=== PATIENT | male | born 1990 | race Native Hawaiian/Other Pacific Islander ===

== ENCOUNTER 2016-11-09 11:30 | Inpatient (IN) | payer OTHER ==
[2016-11-09] VITALS (19 sets, daily range): BP systolic 132–171; BP diastolic 66–118; TEMP 97.6–98.5; Ht 172.7 cm; Wt 83.5 kg
[~2016-11-09] VITALS: Ht 172.7 cm; Wt 83.5 kg
[2016-11-09 12:53] LABS: POTASSIUM 2.8 mmol/L (3.6-5.2)
[2016-11-09 13:06] LABS: SODIUM 117 mmol/L (136-145)
[2016-11-09 14:22] LABS: PLATELET COUNT 140 K/uL (142-355)
[2016-11-10] VITALS (23 sets, daily range): BP systolic 136–178; BP diastolic 80–118; TEMP 97.7–98.3
[2016-11-10 06:56] LABS: PLATELET COUNT 88 K/uL (142-355)
[2016-11-10 07:13] LABS: POTASSIUM 2.9 mmol/L (3.6-5.2); SODIUM 125 mmol/L (136-145)
[2016-11-11] VITALS (13 sets, daily range): BP systolic 112–155; BP diastolic 83–114; TEMP 98–98.4
[2016-11-11 06:03] LABS: POTASSIUM 3.3 mmol/L (3.6-5.2); SODIUM 130 mmol/L (136-145)
[2016-11-11 06:35] LABS: PLATELET COUNT 87 K/uL (142-355)
[2016-11-12] VITALS (22 sets, daily range): BP systolic 103–154; BP diastolic 72–113; TEMP 97.6–99.1
[2016-11-12 06:53] LABS: PLATELET COUNT 115 K/uL (142-355)
[2016-11-12 07:03] LABS: POTASSIUM 3.1 mmol/L (3.6-5.2); SODIUM 131 mmol/L (136-145)
[2016-11-13] VITALS (13 sets, daily range): BP systolic 113–143; BP diastolic 80–101; TEMP 97.6–98.7
[2016-11-13 06:24] LABS: PLATELET COUNT 152 K/uL (142-355)
[2016-11-13 06:34] LABS: POTASSIUM 4.1 mmol/L (3.6-5.2); SODIUM 133 mmol/L (136-145)
[2016-11-14 00:20] VITALS: BP 126/91; TEMP 98.5
[2016-11-14 04:00] VITALS: BP 122/84; TEMP 98.2
[2016-11-14 04:55] LABS: PLATELET COUNT 174 K/uL (142-355)
[2016-11-14 05:23] LABS: SODIUM 136 mmol/L (136-145)
[2016-11-14 08:00] VITALS: BP 125/86; TEMP 97.6
[2016-11-14 12:00] VITALS: BP 140/90; TEMP 98.1
[2016-11-14 16:24] VITALS: BP 126/92; TEMP 98.1
[2016-11-14 20:15] VITALS: BP 128/95; TEMP 98.1
[2016-11-15 00:26] VITALS: BP 132/92; TEMP 98.3
[2016-11-15 04:00] VITALS: BP 100/74; TEMP 97.9
[2016-11-15 07:26] VITALS: BP 148/92; TEMP 98.2
== END 2016-11-15 11:26 | disposition home or self-care (01) | DRG 433 ==
LOC: ICU 11:30 → MED/SURG 11-13 15:15
PROVIDERS: ADMIT Family Medicine
DX: K70.40 Alcoholic hepatic failure without coma (principal); F10.29 Alcohol dependence with unspecified alcohol-induced disorder; E72.29 Other disorders of urea cycle metabolism; E87.1 Hypo-osmolality and hyponatremia
CPT/HCPCS: 36415; 80053; 80307; 80320; 81000; 82140; 83605; 83735; 84100; 85007; 85027; 87493; G0479; J2060; J3411; J3475; J3480; J3490

== ENCOUNTER 2016-12-24 16:15 | Emergency (ER) | payer OTHER ==
[~2016-12-24] VITALS: Ht 175.3 cm; Wt 84.4 kg
[2016-12-24 20:01] VITALS: BP 151/107; TEMP 98.5
== END 2016-12-24 21:17 | disposition home or self-care (01) ==
LOC: ED 16:15
DX: F10.10 Alcohol abuse, uncomplicated (principal)
CPT/HCPCS: 99281

== ENCOUNTER 2017-04-27 11:20 | Observation (INO) | payer OTHER ==
[~2017-04-27] VITALS: Ht 175.3 cm; Wt 89.6 kg
[2017-04-27 12:45] LABS: PLATELET COUNT 199 K/uL (142-355)
[2017-04-27 13:01] LABS: POTASSIUM 2.7 mmol/L (3.6-5.2); SODIUM 133 mmol/L (136-145)
[2017-04-27 17:15] VITALS: BP 168/100; TEMP 98.7; Ht 175.3 cm; Wt 89.6 kg
[2017-04-27 20:00] VITALS: BP 132/92; TEMP 99.1
[2017-04-28] VITALS: BP 135/84; TEMP 98.8
[2017-04-28 04:00] VITALS: BP 130/92; TEMP 98.3
[2017-04-28 08:00] VITALS: BP 122/84; TEMP 98.6
[2017-04-28 10:29] LABS: PLATELET COUNT 124 K/uL (142-355)
[2017-04-28 10:42] LABS: POTASSIUM 3.7 mmol/L (3.6-5.2); SODIUM 133 mmol/L (136-145)
[2017-04-28 12:00] VITALS: BP 126/88; TEMP 97.4
[2017-04-28 16:00] VITALS: BP 133/74; TEMP 98.6
== END 2017-04-28 17:56 | disposition home or self-care (01) ==
LOC: MED/SURG 11:20
PROVIDERS: ADMIT Family Medicine
DX: E86.0 Dehydration (principal); F10.29 Alcohol dependence with unspecified alcohol-induced disorder
CPT/HCPCS: 36415; 80053; 81000; 82140; 82150; 83690; 83735; 84100; 84134; 85027; 93005; 94664; 96360; 96361; 96375; 99220; G0378; G0379; J2060; J2405; J3360; J3411; J3475; J3490

== ENCOUNTER 2017-06-18 18:19 | Emergency (ER) | payer OTHER ==
[~2017-06-18] VITALS: Ht 175.3 cm; Wt 92.5 kg
[2017-06-18 18:36] VITALS: TEMP 98.7
[2017-06-18 19:20] LABS: PLATELET COUNT 294 K/uL (142-355)
[2017-06-18 19:28] LABS: POTASSIUM 3.3 mmol/L (3.6-5.2); SODIUM 137 mmol/L (136-145)
[2017-06-18 20:03] VITALS: BP 139/93
== END 2017-06-18 20:15 | disposition home or self-care (01) ==
LOC: ED 18:19
DX: F10.129 Alcohol abuse with intoxication, unspecified (principal); R00.0 Tachycardia, unspecified
CPT/HCPCS: 80053; 80307; 80320; 85027; 93005; 96374; 99284; G0479; J2060

== ENCOUNTER 2017-12-21 09:06 | Inpatient (IN) | payer OTHER ==
[~2017-12-21] VITALS: Ht 175.3 cm; Wt 92.2 kg
[2017-12-21] VITALS (17 sets, daily range): BP systolic 133–181; BP diastolic 74–102; TEMP 97.9–98.6; Ht 175.3 cm; Wt 92.2 kg
[2017-12-21 09:35] LABS: PLATELET COUNT 130 K/uL (142-355)
[2017-12-21 10:04] LABS: POTASSIUM 1.9 mmol/L (3.6-5.2)
--- NOTE | 2017-12-21 13:45 | NUR ---
REPORT RECEIVED FROM MANOJ SALEEM IN ER.
--- NOTE | 2017-12-21 14:20 | NUR ---
PT ADMITTED FROM ER TO ICU. ALERT AND ORIENTED X2. PT LETHARGIC BUT ABLE TO FOLLOW SIMPLE COMMANDS. RR EQUAL NONLABORED AT 18. TEMP 98.2. BP 143/94. PULSE 113. TELEMETRY APPLIED WITH SINUS TACH NOTED. SKIN WARM AND DRY. PT NAUSEATED AND HAS VOMITTED INTERMITTED TIMES. LUNGS CLEAR ON AUSCULATION. BOWEL SOUNDS HYPOACTIVE. ABDOMEN DISTENDED AND FIRM. NO EDEMA NOTED. SR UP X2. BED IN LOWEST POSITION. CALL LIGHT IN REACH. WILL CONTINUE TO MONITOR.
--- NOTE | 2017-12-21 15:00 | NUR ---
SPOKE WITH PT REGARDING PASSWORD AND HIS PARENTS, PT AGREED THAT PARENTS COULD HAVE PASSWORD. EXPLAINED VISITING TIMES TO PARENTS (THAT ONLY ONE PARENT FOR 15 MINS COULD VISIT DAILY)
--- NOTE | 2017-12-21 17:23 | NUR ---
PT NAUSEA AND VOMITTING. ONDANSTERON 4MG IV GIVEN FOR NAUSEA AT THIS TIME. PT INSTRUCTED ON USING URINAL. NAD NOTED. WILL CONTINUE TO MONITOR.
--- NOTE | 2017-12-21 17:41 | NUR ---
PT ASSISTED TO BR WITH TWO PERSON ASSIST.
--- NOTE | 2017-12-21 18:07 | NUR ---
IV ATIVAN 1MG GIVEN PER PROTOCOL. PT AGGITATED AND CONTINUES TO GET OUT OF THE BED TO GO TO THE BR. PT TREMORS NOTED. GAIT UNSTEADY AND REQUIRES ASSISTANCE. WILL CONTINUE TO MONITOR.
--- NOTE | 2017-12-21 18:13 | NUR ---
NAUSEA AND VOMITTING NOTED. PT ASSESSED WITH HOB ELEVATED. WILL CONTINUE TO MONITOR.
--- NOTE | 2017-12-21 18:46 | NUR ---
PT ASSISTED BACK TO BED FROM BR. NAD NOTED. WILL CONTINUE TO MONITOR.
--- NOTE | 2017-12-21 18:54 | NUR ---
PT RESTING IN BED ON RIGHT SIDE WITH HOB ELEVATED. SR UP X2. CALL LIGHT IN REACH. PULSE 126 BP 140/94. O2 SAT 100% ON RA. NO VOMITTING NOTED AT THIS TIME. POTASSIUM INFUSING AT 125 ML/HR. IV APPEARS NORMAL. NO HEAT OR SWELLING NOTED AT SITE. BED IN LOWEST POSTITION.
--- NOTE | 2017-12-21 19:14 | NUR ---
ATIVAN 1MG IV GIVEN PER PROTOCOL. NAD NOTED. WILL CONTINUE TO MONITOR.
[2017-12-22] VITALS (22 sets, daily range): BP systolic 108–171; BP diastolic 41–109; TEMP 98.5–99.6
--- NOTE | 2017-12-22 02:59 | NUR ---
12-21-171999 PT ASSESSMENT COMPLETE. PT ON CIWA PROTOCOL, SEE SCORE SHEET FOR SCORE. ATIVAN 1 MG IV (LAC) GIVEN SLOW IVP DUE TO CIWA SCORE. WILL CONT. TO MONITOR PT. SH
--- NOTE | 2017-12-22 03:03 | NUR ---
[id number] PT GIVEN ATIVAN 1 MG IV SLOW PUSH, SEE CIWA SCORE. WILL CONT. TO MONITOR PT FOR FURTHER NEEDS/ PROBLEMS. SH
--- NOTE | 2017-12-22 03:08 | NUR ---
3-29-1947 [facility] PROTOCOL FOR ALCOHOL WITHDRAWAL ASSESSMENT SCORING GUIDE, IN USE FOR THIS PT. ATIVAN 1 MG IV WAS GIVEN AT 191 THE LAST TIME. 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 AT THIS TIME HE IS IN BED NAPPING WITHOUT ANY NOTED PROBLEMS. SH
--- NOTE | 2017-12-22 03:23 | NUR ---
2248 - CIWA SCORE OF 8. PT IS NAPPING AT THIS TIME WITH NO DISTRESS NOTED. NO ATIVAN GIVEN. SH.
[2017-12-22 06:24] LABS: POTASSIUM 2.7 mmol/L (3.6-5.2)
--- NOTE | 2017-12-22 07:11 | NUR ---
12/22/17 0048 CIWA SCALE OBTAINED. PT EXISTING IV HAS STOPPED WORKING , CANNULA IS SLIPPING OUT OF LAC. THIS IV DC'D AND NEW # 22 JELCO PLACED INTO PTS R HAND, X 1 ATTEMPT ,SUCCESSFUL, PT TOLERATED WELL. NO ATIVAN NEEDED FOR PT AT THIS TIME. WILL MONITOR. SH
--- NOTE | 2017-12-22 07:18 | NUR ---
0205 ATIVAN 1 MG IV SP GIVEN FOR CIWA SCORE AND PT DISPOSITION. WILL CONT. TO MONITOR. SH
--- NOTE | 2017-12-22 07:20 | NUR ---
0305 NO ATIVAN DOSE NEEDED. PT SLEEPING , CIWA SCALE 7. SH 0445 ATIVAN 1 MG IV SP GIVEN FOR CIWA SCORE OF 13. SH 0548 PT SLEEPING WITHOUT ANY DISTRESS NOTED. CIWA SCORE IS 5. NO ATIVAN. SH 0648 PT CONT. SLEEPING WITHOUT ANY PROBLEMS. NO ATIVAN GIVEN. SH
--- NOTE | 2017-12-22 08:00 | NUR ---
PATIENT ADMITTED IN ICU 20-13. PATIENT DISPLAYS MODERATE ALCOHOL WITHDRAWL SYMTOMS, TREMORS AND ANXIETY NOTED WITH A MODERATE AMOUNT OF DIAPHERESIS. PATIENT EVALUATED ON CIWA SCALE, WILL CONTINUE TO MONITOR PATIENT FOR ANY CHANGES.
--- NOTE | 2017-12-22 09:00 | NUR ---
LO DA SILVA RETORT FIREMAN AND PATIENTS BED SIDE
--- NOTE | 2017-12-22 10:30 | NUR ---
PATIENT SLEEPING ALLL MORNING. PATIENT WAKES TO USE URINAL
--- NOTE | 2017-12-22 12:00 | NUR ---
PATIENT RESTING WITH EYES CLOSED, SNORING SOUNDS HEARD.
--- NOTE | 2017-12-22 14:00 | NUR ---
PATIENT RESTING, SNORING NOTED, EYES CLOSED. NO DISTRESS NOTED.
--- NOTE | 2017-12-22 15:00 | NUR ---
PATIENT RESTING WITH EYES CLOSE, SNORING SOUND HEARD.
[2017-12-22 15:39] LABS: PLATELET COUNT 81 K/uL (142-355)
--- NOTE | 2017-12-22 22:50 | NUR ---
PT RESTING IN BED WITH EYES CLOSED ON R SIDE, NO S/S OF PAIN OR DISTRESS NOTED, IV INTACT WITH FLUID ONGOING, RESP RATE NONLABORED, WILL MONITOR CLOSELY, RAILS UP, BED IN LOW POSITION.
[2017-12-23] VITALS (14 sets, daily range): BP systolic 97–135; BP diastolic 71–99; TEMP 98.1–99.1
--- NOTE | 2017-12-23 00:15 | NUR ---
PT AWAKE WITH NO DISTRESS OR OTHER PROBLEMS NOTED, IV INTACT, RESP RATE NONLABORED ON ROOM AIR. PT UP TO BSC WITH NO PROBLEMS, DARK URINE NOTED THAT IS SHANA/TEA COLOR. PT DENIES ANY NEEDS, PT ASKED WHAT TIME IT WAS AND PT TOLD THAT IT IS NOW MONDAY, ACKNOWLEDGES UNDERSTANDING. WILL MONITOR CLOSELY.
--- NOTE | 2017-12-23 03:05 | NUR ---
PT LAYING ON HIS BACK SNORING. NO S/S OF DISTRESS NOTED. WILL CONTINUE TO MONITOR.
[2017-12-23 06:15] LABS: PLATELET COUNT 80 K/uL (142-355)
[2017-12-23 06:25] LABS: POTASSIUM 2.8 mmol/L (3.6-5.2)
--- NOTE | 2017-12-23 06:55 | NUR ---
PT AWAKE LAYING IN BED WITH NO DISTRESS NOTED, WILL MONITOR CLOSELY, RAILS UP, BED IN LOW POSITION.
--- NOTE | 2017-12-23 10:00 | NUR ---
PATIENT SHOWS SIGNS OF AGITATION AND ANXIETY, PATIENT HAS TREMORS, AND SWEATS. ATIVAN PRN GIVEN
--- NOTE | 2017-12-23 12:00 | NUR ---
NEW IV 20 STARTED IN LEFT ARM
--- NOTE | 2017-12-23 17:38 | NUR ---
PATIENT REFUSING IV AND IV POTASSIUM, DR. BAUGH GAVE NEW ORDERS FOR PO POTASSIUM
--- NOTE | 2017-12-23 18:02 | NUR ---
NEW IV 20 G STARTED IN R WRIST.
--- NOTE | 2017-12-23 18:42 | NUR ---
PATIENT GIVEN 40 MEQ OF POTASSIUM PO FOR LEVEL OF 2.[address] BAUGH
--- NOTE | 2017-12-23 22:00 | NUR ---
PT RESTING ON L SIDE WITH EYES CLOSED, NO S/S OF PAIN OR DISTRESS NOTED, IV INTACT WITH FLUID ONGOING, RESP RATE NONLABORED, ON ROOM AIR, WILL CONTINUE TO MONITOR CLOSELY, RAILS UP, BED IN LOW POSITION.
[2017-12-24 00:02] VITALS: BP 136/92; TEMP 98.9
--- NOTE | 2017-12-24 00:20 | NUR ---
PT UP TO BSC, URINATED AND HAD SMALL VERY LOOSE BM, PT STATES IT STARTED LATER ON YESTERDAY AFTERNOON. PT STOOD AT BEDSIDE AND CLEAN HIS SELF UP WITH WET WIPES AND CHANGED HIS CLOTHES. PT NOW BACK IN BED IN POSITION OF COMFORT. WILL MONITOR CLOSELY.
--- NOTE | 2017-12-24 00:31 | NUR ---
PT C/O BEING "JITTERY" AND STATES HE CAN NOT SLEEP, REQUESTING HIS ATIVAN. GIVEN ATIVAN 1MG IVP PRN AT THIS TIME. NO S/S OF PAIN OR DISTRESS, DENIES ANY OTHER PROBLEMS, IV INTACT TO L AC WITH NS INFUSING AT 150ML/HR, RESP RATE NONLABORED, ON ROOM AIR. APPLIED ACCOUNTING AUDITOR AND B/P CUFF DUE TO PT TOOK THEM OFF AGAIN. ENCOURAGED TO KEEP ON SO THAT STAFF COULD MONITOR HIS VITAL SIGNS. WILL MONITOR CLOSELY, RAILS UP, BED IN LOW POSITION, ENCOURAGED TO CALL NEEDED.
[2017-12-24 03:30] VITALS: BP 118/78
--- NOTE | 2017-12-24 03:30 | NUR ---
PT C/O HAVING THE "JITTERS" HE RAISES HIS HANDS UP IN THE AIR AND REQUESTS PRN MEDICATION, INSURANCE ACCOUNT MANAGER NOTES NO VISIBLE TREMORS NOTED TO HANDS/ARMS. ADX ATIVAN 1MG PO PRN. IV INTACT, RESP RATE NONLABORED ON ROOM AIR, WILL CONTINUE TO MONITOR CLOSELY, RAILS UP, BED IN LOW POSITION.
[2017-12-24 05:20] VITALS: BP 128/89
--- NOTE | 2017-12-24 05:54 | NUR ---
AWAKE WATCHING TV IN BED, NO S/S OF PAIN OR DISTRESS NOTED, IV INTACT TO L AC WITH FLUID ONGOING, RESP RATE NONLABORED, ON ROOM AIR, PT SEEMS A LITTLE AGITATED AND IS TIRED OF BEING IN ICU. STATES HE IS GONNA "TRANSFER OUT" TODAY TO ANOTHER FACILITY. PT HAS BEEN VERY DAMANDING DURING THE WHOLE SHIFT. FREQUENTLY ASKING FOR FOOD AND DRINK, STATING HE HAS NOT HAD A MEAL(PT IS ON REGULAR DIET AND HAD A SNACK DURING THE NIGHT). NO VISUAL TREMORS OR "JITTERS" NOTED BY UPPER LEATHER SORTER. WILL CONTINUE TO MONITOR CLOSELY, RAILS UP, BED IN LOW POSITION.
[2017-12-24 06:08] LABS: PLATELET COUNT 104 K/uL (142-355)
--- NOTE | 2017-12-24 06:15 | NUR ---
PT AGITATED AND UPSET WITH STAFF, STATES HE IS LEAVING AND UPSET WANTING HIS BREAKFAST NOW, PT VERY DEMANDING AND RAISED VOICE AT STAFF. ENCOURAGED TO TO GET BACK IN BED AND THAT HE COULD TALK TO THE DR SOON WHEN HE MAKES MORNING ROUNDS. PT PULLED OUT IV IN L AC AND STATES "OHH LOOK AT THAT" HE PULLED IV OUT AND IT STARTED TO BLEED. BLEEDING CONTROLLED AND SITE COVERED WITH GAUZE, NO PROBLEMS NOTED TO SITE. PT STANDING UP IN MIDDLE OF ICU. 0630 PT STATES THAT HE IS OKAY NOW AND IS NOW CALM. STATES HE JUST WANTS HIS "MEDICINE" AND THAT HE WILL STAY. PT NOW BACK IN BED. 0632 GAVE PT ATIVAN 1MG PO PRN FOR WHAT PT STATES ARE "JITTERS", NO TREMORS NOTED BY MANAGER SHIFT.
--- NOTE | 2017-12-24 08:20 | NUR ---
LATE ENTRY: 12/22/17 AT 1999NOTE PT'S EYES ARE SLIGHTLY YELLOW.
[2017-12-24 09:00] VITALS: BP 141/93; TEMP 98.9
--- NOTE | 2017-12-24 12:25 | NUR ---
PATIENT HALLUCINATING SAYING HE SAW SOMEONE TELL HIM IT WAS TIME TO LEAVE. PATIENT GIVEN ATIVAN AT THIS TIME.
--- NOTE | 2017-12-24 13:15 | NUR ---
PATIENT HIGHLY ANXIOUS, WALKING AROUND THE ROOM TALKING TO HIMSELF EXPERIENCING AUDITORY HALLUCINATIONS
--- NOTE | 2017-12-24 13:49 | NUR ---
PATIENT CURSING IN BED, WANTING TO LEAVE. PATIENT GIVEN ATIVAN PER CIWA PROTOCOL. WILL CONTINUE TO MONITOR PATIENT.
--- NOTE | 2017-12-24 14:03 | NUR ---
HALDOL 5MG IV GIVEN IN RIGHT DELTOID
--- NOTE | 2017-12-24 15:58 | NUR ---
PATIENT AGITATED, TREMORS NOTED, PATIENT TALKING TO HIMSELF HALUCINATING CALLING FOR "PRANAY", STANDING UP IN ROOM, WALKING AROUND ICU TRYING TO LEAVE ICU BY BACK DOOR SCREAMING. PATIENT BLOCKED AND REDIRECTED TO ROOM.
--- NOTE | 2017-12-24 16:21 | NUR ---
PATIENT RESTING IN BED EYES CLOSED, PATIENT REFUSED TO KEEP ON BLOOD PRESSURE CUFF, SATELLITE TV INSTALLER LEADS. PATIENT DISCONTINUED OWN IV. PATIENT REFUSES TO COMPLY WITH ANY DIRECTIONS FROM NURSE.
--- NOTE | 2017-12-24 19:08 | NUR ---
PATIENT RESTING QUEIETLY IN BED, AWOKE TO EAT DINNER. NO COMPLAINTS VOICED, NO ANXIETY OR AGITATION NOTED.
--- NOTE | 2017-12-25 08:30 | NUR ---
PT UP TO BATHROOM
[2017-12-25 09:08] LABS: PLATELET COUNT 149 K/uL (142-355)
--- NOTE | 2017-12-25 11:00 | NUR ---
PT PRISCILLA ABOUT GETTING OUT OF ICU, WANTS TO KNOW WHY HIS ROOM ISNT READY.
--- NOTE | 2017-12-25 11:40 | NUR ---
FAXED WORK EXUSE FORM TO PTS JOINT FINISHER SHANA BONILLA
--- NOTE | 2017-12-25 13:11 | NUR ---
PT PRISCILLA AT NURSES.
--- NOTE | 2017-12-25 13:30 | NUR ---
REPORT GIVEN TO AYANNA JEAN LPN. PATIENT TRANSFERED TO MED SURG IN GOOD CONDITION VIA WHEELCHAIR.
--- NOTE | 2017-12-25 13:35 | NUR ---
RECIEVED PT VIA WC TO ROOM 1110 BY ICU STAFF. NO IV ACCESS. PT ALERT AND ORIENTED. PT TOLERATING WELL. WILL CONTINUE TO MONITOR.
[2017-12-25 20:00] VITALS: BP 124/73; TEMP 98.7
[2017-12-26] VITALS: BP 116/80; TEMP 99.8
[2017-12-26 04:00] VITALS: BP 121/83; TEMP 98.9
[2017-12-26 06:10] LABS: PLATELET COUNT 137 K/uL (142-355)
[2017-12-26 06:33] LABS: POTASSIUM 3.7 mmol/L (3.6-5.2)
[2017-12-26 08:00] VITALS: BP 139/88; TEMP 98.6
[2017-12-26 12:00] VITALS: BP 148/89; TEMP 98.7
[2017-12-26 16:00] VITALS: BP 176/106; TEMP 98.4
[2017-12-26 20:00] VITALS: BP 120/84; TEMP 98.9
[2017-12-27] VITALS: BP 112/79; TEMP 99
[2017-12-27 04:00] VITALS: BP 128/80; TEMP 99.6
[2017-12-27 05:38] LABS: PLATELET COUNT 177 K/uL (142-355); POTASSIUM 3.1 mmol/L (3.6-5.2)
[2017-12-27 08:00] VITALS: BP 125/82; TEMP 98.5
--- NOTE | 2017-12-27 12:28 | NUR ---
IV D/C'D. D/C INSTRUCTIONS GIVEN. PT GIVEN LIST OF PCPS. PT TO CHOOSE PCP AND MAKE FU APT. PT HAS NO FUTHER QUESTIONS. PT WAITING ON RIDE AT THIS TIME.
--- NOTE | 2017-12-27 12:30 | NUR ---
PT GIVEN PRESCRIPTION FOR ATIVAN PO Q8 PRN (#[id number]). GRANDMOTHER HERE AT THIS TIME. PT WHEELED OUT TO FAMILY CAR, NO PROBLEMS NOTED. PT HAS NO QUESTIONS OR CONCERNS.
== END 2017-12-27 13:10 | disposition home or self-care (01) | DRG 897 ==
LOC: ED 09:06 → ICU 11:50 → MED/SURG 12-25 13:30
PROVIDERS: Family Medicine; ADMIT Emergency Medicine
DX: F10.229 Alcohol dependence with intoxication, unspecified (principal); E87.1 Hypo-osmolality and hyponatremia; F10.239 Alcohol dependence with withdrawal, unspecified; Y90.8 Blood alcohol level of 240 mg/100 ml or more; E87.6 Hypokalemia; E86.0 Dehydration; E87.8 Other disorders of electrolyte and fluid balance, not elsewhere classified; R73.02 Impaired glucose tolerance (oral); E83.51 Hypocalcemia; E80.6 Other disorders of bilirubin metabolism; R74.8 Abnormal levels of other serum enzymes
CPT/HCPCS: 36415; 80053; 80307; 80320; 81000; 82140; 82150; 82248; 82550; 83690; 83735; 84132; 84484; 85027; 93005; 94760; 96361; 96365; 96372; 99285; J0696; J1630; J2060; J2405; J3411; J3475; J3480; J3490; Q9963

== ENCOUNTER 2018-03-22 14:06 | Emergency (ER) | payer OTHER ==
[~2018-03-22] VITALS: Ht 175.3 cm; Wt 97.1 kg
[2018-03-22 14:17] VITALS: TEMP 98
[2018-03-22 15:33] LABS: PLATELET COUNT 157 K/uL (142-355)
[2018-03-22 15:42] LABS: POTASSIUM 2.9 mmol/L (3.6-5.2)
[2018-03-22 18:24] VITALS: BP 146/88
== END 2018-03-22 18:26 | disposition short-term general hospital (02) ==
LOC: ED 14:06
PROVIDERS: Emergency Medicine
DX: F10.129 Alcohol abuse with intoxication, unspecified (principal); K70.10 Alcoholic hepatitis without ascites
CPT/HCPCS: 36415; 80053; 80320; 80329; 85027; 96361; 96374; 99285; J2060

== ENCOUNTER 2018-03-22 18:20 | Outpatient (CLI) | payer OTHER | END 2018-03-22 19:45 | disposition short-term general hospital (02) | LOC: AMB 18:20 | DX: F10.129 Alcohol abuse with intoxication, unspecified (principal); K70.10 Alcoholic hepatitis without ascites | CPT/HCPCS: A0425; A0429 ==